=== PATIENT | male | born 1975 | race Caucasian/White ===

== ENCOUNTER 2016-10-01 20:44 | Emergency (ER) | payer BC, OTHER ==
[~2016-10-01] VITALS: Ht 182.9 cm; Wt 100.7 kg
[2016-10-01 20:58] VITALS: BP 131/79; PULSE 86; RESP 18; TEMP 96.5; O2SAT 96
--- NOTE | 2016-10-01 20:58 | NUR ---
Placed in formerly [facility], [facility]. Report given to Daina MCCULLOUGH.
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
--- NOTE | 2016-10-01 21:09 | NUR ---
ER JAYSON MONTALVO at bedside examining patient.
[2016-10-01] MEDS ORDERED: KETOROLAC TROMETHAMINE 60 MG/2 ML VIAL IM ONE (21:15)
[2016-10-01] MEDS ORDERED: PREDNISONE 20 MG TABLET PO ONE (21:15)
[2016-10-01 21:37] VITALS: BP 137/79; PULSE 80; RESP 20; TEMP 96.8; O2SAT 98
--- NOTE | 2016-10-01 21:37 | NUR ---
Patient given written and verbal discharge instructions and verbalizes understanding. ER ROOF PAINTER KATIA discussed with patient the results and treatment provided. Patient in stable condition. ID arm band removed. Rx of TRAMADOL, MOTRIN, PREDNISONE given. Patient educated on pain management and to follow up with PMD. Pain Scale 3/10, PT STATES IT IS TOLERABLE, AMBULATES W/ STEADY GAIT. Opportunity for questions provided and answered.
[2016-10-01 22:10] LABS: BILIRUBIN,URINE NEGATIVE (NEGATIVE); CLARITY/URINE CLEAR (CLEAR); COLOR,URINE YELLOW (YELLOW); GLUCOSE,URINE NEGATIVE (NEGATIVE); KETONES,URINE NEGATIVE (NEGATIVE); LEUKOCYTE ESTERASE ,URINE NEGATIVE (NEGATIVE); NITRITE, URINE NEGATIVE (NEGATIVE); PH,URINE 5.5 (5.0-8.0); PROTEIN URINE NEGATIVE (NEGATIVE); UROBILINOGEN,URINE 0.2 (0.2-1.0)
[2016-10-01 22:11] LABS: BLOOD, URINE TRACE (NEGATIVE)
[2016-10-01 22:16] LABS: BACTERIA,URINE FEW /HPF (None Seen); RBC,URINE 0-3 /HPF (0-3); WBC,URINE 0-3 /HPF (0-3)
[2016-10-01 22:17] LABS: MUCUS,URINE 2+ /LPF (None Seen)
== END 2016-10-01 21:37 | disposition home or self-care (01) ==
LOC: SED 20:44
DX: M54.17 Radiculopathy, lumbosacral region (principal)
CPT/HCPCS: 81000; 96372; 99283; J1885; J7512

== ENCOUNTER 2017-06-02 09:47 | Emergency (ER) | payer BC ==
[~2017-06-02] VITALS: Ht 182.9 cm; Wt 102.1 kg
[2017-06-02 09:57] VITALS: BP_SYST 118
[2017-06-02 12:32] VITALS: BP_SYST 114
== END 2017-06-02 12:32 | disposition home or self-care (01) ==
LOC: SED 09:47
DX: J20.9 Acute bronchitis, unspecified (principal)
CPT/HCPCS: 99283